=== PATIENT | male | born 1940 | race Caucasian/White ===

== ENCOUNTER 2017-01-24 05:17 | Day surgery (SDC) | payer MEDICARE, OTHER ==
[~2017-01-24] VITALS: Ht 190.5 cm; Wt 122.5 kg
[~2017-01-24 05:17] MED LIST: ARMOUR THYROID60 M1 PO; MULTI-DAY VITAM1 TAB PO
[2017-01-24 06:18] LABS: HEMATOCRIT 38.7 % (42.0-54.0); HEMOGLOBIN 12.9 g/dL (13.5-17.5); MCH 31.9 pg (26.0-34.0); MCHC 33.3 g/dL (31.0-37.0); MCV 95.8 fL (80.0-100.0); MEAN PLATELET VOLUME 9.8 fL (7.4-10.4); RBC 4.04 10x6/uL (4.20-6.10); RDW 13.9 % (11.5-14.5); WBC 5.5 10x3/uL (4.8-10.8)
[2017-01-24 06:42] VITALS: BP 139/90; Ht 190.5 cm; Wt 122.5 kg
[2017-01-24] MEDS ORDERED: HYDROCODONE-APA1 TAB PO (08:12)
--- NOTE | 2017-01-24 09:35 | NUR ---
IV DC WITH CATHER TIP INTACT
--- NOTE | 2017-01-24 10:16 | NUR ---
C/O PAIN NORCO 10 I GIVEN FOR PAIN 7 ON PAIN SCALE
--- NOTE | 2017-01-24 10:40 | NUR ---
WAITING ON CRUTCHES
--- NOTE | 2017-02-14 14:06 | OP ---
PATIENT NAME: RADHA ROBINS MEDICAL RECORD: [id number] :42 LOCATION:[facility] ADMISSION DATE: SURGEON: ANKITA KEYS MD DATE OF OPERATION: 01/24/2017 PREOPERATIVE DIAGNOSIS: Lateral meniscus tear of the right knee. POSTOPERATIVE DIAGNOSIS: Lateral meniscus tear of the right knee. PROCEDURE: Right knee arthroscopy with arthroscopic partial lateral meniscectomy. SURGEON: Ankita Keys MD ANESTHESIA: General. INTRAOPERATIVE COMPLICATIONS: None. SUMMARY OF PATHOLOGIC FINDINGS: A complex tear of the lateral meniscus, small tearing of the medial meniscus was noted as well. OPERATIVE SUMMARY IN DETAIL: After obtaining the appropriate orthopedic surgery consent as well as anesthetic consultation, evaluation, and clearance, the patient the patient was brought to the operating room and placed on the operating table in supine position. After general laryngeal mask airway was administered, tourniquet was placed about the proximal aspect of the right lower extremity. Right lower extremity was then prepped and draped in routine sterile fashion. The leg was elevated and exsanguinated, tourniquet inflated to 350 mmHg. Routine inferolateral portal was established followed by superior medial portal and inferior medial portal. Diagnostic arthroscopy did reveal the patient to have substantial lateral meniscal tearing. This was photographed intraoperatively and made a part of the permanent chart. Small amount of debridement was done on the medial meniscus side; however, this patient's obvious problem was on the lateral side. Combination of arthroscopic meniscotomes as well as an arthroscopic resector utilized to debride the lateral meniscal tear back to stable lateral meniscal elements. Having completed this, the knee was insufflated with 30 cc of 0.25% Marcaine with epinephrine and 80 mg of Depo-Medrol. Arthroscopy portals were closed in routine interrupted fashion using 4-0 Prolene. Sterile dressings were applied. The patient was awakened and taken to recovery room in stable condition. All final needle and sponge counts were correct. TRANSINT:[id number] Voice Confirmation ID: [id number] DOCUMENT ID: [id number] ANKITA KEYS MD at 1406 CC: [id number] DICTATION DATE: 02/11/17 1524 GRINDING SUPERVISOR: 02/11/172010 [facility] 01/24/17 [place] [id number]
== END 2017-01-24 10:41 | disposition home or self-care (01) ==
LOC: D.OPS 05:17 → D.PAN 07:30 → D.OPS 08:15 → D.PAN 08:15 → D.OPS 10:41
PROVIDERS: Anesthesiology
DX: S83.281A Other tear of lateral meniscus, current injury, right knee, initial encounter (principal); E03.9 Hypothyroidism, unspecified; Z87.891 Personal history of nicotine dependence; Z01.812 Encounter for preprocedural laboratory examination